=== PATIENT | female | born 1965 | race Caucasian/White ===

== ENCOUNTER → 2017-03-20 | Outpatient (CLI) | payer MEDICAID | LOC: FIMAGING 09:42 | PROVIDERS: ATTEND Internal Medicine | DX: R10.11 Right upper quadrant pain (principal); R16.0 Hepatomegaly, not elsewhere classified ==

== ENCOUNTER → 2017-03-28 | Outpatient (CLI) | payer MEDICAID | LOC: FIMAGING 15:54 | PROVIDERS: ATTEND Internal Medicine | DX: Z12.31 Encounter for screening mammogram for malignant neoplasm of breast (principal) ==

== ENCOUNTER → 2017-04-24 | Outpatient (CLI) | payer MEDICAID | LOC: FIMAGING 09:41 | PROVIDERS: ATTEND Radiology Diagnostic Radiology | DX: R92.8 Other abnormal and inconclusive findings on diagnostic imaging of breast (principal) ==